=== PATIENT | female | born 1995 | race African-American/Black ===

== ENCOUNTER 2022-12-12 04:08 | Emergency (ER) | payer OTHER, SELFPAY ==
[2022-12-12] MEDS ORDERED: Dexamethasone 4 MG TAB ONE (04:55)
[2022-12-12] MEDS ORDERED: Lidocaine Viscous Sol 2% 15 ml UD Cup SSP SCH (05:00)
== END 2022-12-12 05:20 | disposition home or self-care (01) ==
LOC: CSHERS 04:08
DX: J02.9 Acute pharyngitis, unspecified (principal); I10 Essential (primary) hypertension; E03.9 Hypothyroidism, unspecified
CPT/HCPCS: 99282; J8540

== ENCOUNTER 2023-03-23 04:03 | Emergency (ER) | payer SELFPAY ==
[2023-03-23] MEDS ORDERED: Famotidine 20 MG TAB ONE (04:33)
[2023-03-23] MEDS ORDERED: predniSONE 20 MG TAB ONE (04:34)
== END 2023-03-23 04:41 | disposition home or self-care (01) ==
LOC: CSHERS 04:03
DX: L50.1 Idiopathic urticaria (principal); I10 Essential (primary) hypertension; E05.90 Thyrotoxicosis, unspecified without thyrotoxic crisis or storm
CPT/HCPCS: 99282; J7512